=== PATIENT | male | born 1980 | race Caucasian/White ===

== ENCOUNTER 2020-10-01 11:54 | Emergency (ER) | payer OTHER ==
[~2020-10-01] VITALS: Ht 188 cm; Wt 108.9 kg
[2020-10-01 12:44] LABS: BASOPHILS ABSOLUTE AUTO 0.04 K/mm3 (0.00-0.23); BASOPHILS PERCENT AUTO 1 % (0-2); EOSINOPHILS ABSOLUTE AUTO 0.17 K/mm3 (0.00-0.68); EOSINOPHILS PERCENT AUTO 3 % (0-6); Hematocrit 38.2 % (37.0-53.0); IMMATURE GRAN ABSOLUTE AUTO 0.01 K/mm3 (0.00-0.10); IMMATURE GRAN PERCENT AUTO 0 % (0-1); LYMPHOCYTES PERCENT AUTO 8 % (21-46); MONOCYTES ABSOLUTE AUTO 0.74 K/mm3 (0.16-1.47); MONOCYTES PERCENT AUTO 12 % (4-13); Mean Corpuscular Volume 82 fL (80-100); Mean Platelet Volume 9.8 fL (9.1-12.4); NEUTROPHILS ABSOLUTE AUTO 4.88 K/mm3 (1.96-9.15); NEUTROPHILS PERCENT AUTO 77 % (41-73); Platelet Count 265 K/mm3 (150-400); RDW Coefficient Variation 12.3 % (11.7-14.2); RDW Standard Deviation 37.3 fL (35.1-46.3); Red Blood Cell Count 4.65 M/mm3 (4.30-5.90); White Blood Cell Count 6.34 K/mm3 (4.00-11.30)
[2020-10-01 13:01] LABS: Albumin, Blood 3.2 g/dL (3.4-5.0); Albumin/Globulin Ratio 0.7 (0.8-1.8); Bilirubin, Total 1.2 mg/dL (0.1-1.0); Bun/Creatinine Ratio 11.6 (12.0-20.0); Calcium, Blood 9.4 mg/dL (8.5-10.1); Creatinine, Blood 1.46 mg/dL (0.60-1.20); Globulin, Blood 4.4 g/dL (2.2-4.0); Potassium, Blood 3.7 mmol/L (3.5-5.5); Total Protein, Blood 7.6 g/dL (6.4-8.2)
[2020-10-01 14:40] LABS: SARS-Cov-2 (COVID-19) PCR, MMC NEGATIVE (NEGATIVE)
[2020-10-01] MEDS ORDERED: ACET325 PO (16:47)
[2020-10-01] MEDS ORDERED: LORA2 PO (16:47)
[2020-10-01] MEDS ORDERED: IBUP600 PO (16:53)
[2020-10-01] MEDS ORDERED: AZIT250 PO (16:53)
[2020-10-01] MEDS ORDERED: AMOCLA875 PO (16:53)
== END 2020-10-01 17:15 | disposition home or self-care (01) ==
LOC: ER 11:54
PROVIDERS: Physician Assistant; Student in an Organized Health Care Education/Training Program
DX: J18.9 Pneumonia, unspecified organism (principal); R09.1 Pleurisy; R91.8 Other nonspecific abnormal finding of lung field; N17.9 Acute kidney failure, unspecified; R00.0 Tachycardia, unspecified; Z20.822 Contact with and (suspected) exposure to COVID-19
CPT/HCPCS: 71045; 71260; 80053; 84484; 85025; 93005; 93010; 96365; 96375; 99285-25; A9270; J0696; J1885; Q9967; U0004

== ENCOUNTER 2020-10-14 07:05 | Day surgery (SDC) | payer OTHER ==
[~2020-10-14] VITALS: Ht 188 cm; Wt 109.9 kg
[~2020-10-14 07:05] MED LIST: ACET325 PO; AMOCLA875 PO; AZIT250 PO; IBUP600 PO; LORA2 PO; MULVITA PO; PROBIOTIC1 EA13 PO
--- NOTE | 2020-10-14 10:12 | NUR ---
ONE SURGICAL SITE LEFT SIDE OF NECK AND 1 AREA LEFT NECK WITH DERMABONG CDI
--- NOTE | 2020-10-14 10:48 | NUR ---
PATIENT ABLE TO REPOSITION SELF IN BED.
--- NOTE | 2020-10-14 10:57 | NUR ---
DURABOND AT procedure site clean, dry, intact with no visible drainage, swelling, erythema or bruising noted X4 INCISIONS. PROVIDED PO FLUIDS AND PAIN PILL.
--- NOTE | 2020-10-14 11:33 | NUR ---
Ambulatory in Day Surgery. Discharge instructions reviewed with patient. Patient verbalizes understanding. Copy given to patient to take home. DURABOND AT procedure site clean, dry, intact with no visible drainage, swelling, erythema or bruising noted. Patient States Post-Procedure ride home has been arranged. Discharged via wheelchair to private car for ride home. ALL BELONGINGS RETURNED TO PATIENT.
[2020-10-18 13:00] LABS: Performing Lab SYMBIDX; Test Name TISSUE BIOPSY
== END 2020-10-14 11:26 | disposition home or self-care (01) ==
LOC: ORSCMMR 07:05 → ORD 10-18 10:00
PROVIDERS: Pathology Clinical Pathology/Laboratory Medicine; Surgery
PROC: 07B70ZX Excision of Thorax Lymphatic, Open Approach, Diagnostic (ICD-10-PCS; principal; 2020-10-14 08:30)
PROC: 0JH60WZ Insertion of Totally Implantable Vascular Access Device into Chest Subcutaneous Tissue and Fascia, Open Approach (ICD-10-PCS; principal; 2020-10-14 08:30)
DX: C83.32 Diffuse large B-cell lymphoma, intrathoracic lymph nodes (principal); E04.1 Nontoxic single thyroid nodule; Z87.891 Personal history of nicotine dependence
CPT/HCPCS: 77001; 87102; 87106; 88305; 88341; 88342; 88360; 88365; 88374; A9270; C1788; J0690; J1100; J1642; J2250; J2370; J2405; J2704; J3010; J7120

== ENCOUNTER 2021-04-08 11:41 | Emergency (ER) | payer OTHER ==
[~2021-04-08] VITALS: Ht 185.4 cm; Wt 108.9 kg
[2021-04-08 15:52] LABS: BASOPHILS ABSOLUTE AUTO 0.05 K/mm3 (0.00-0.23); BASOPHILS PERCENT AUTO 1 % (0-2); EOSINOPHILS ABSOLUTE AUTO 0.49 K/mm3 (0.00-0.68); EOSINOPHILS PERCENT AUTO 12 % (0-6); Hematocrit 38.1 % (37.0-53.0); Hemoglobin 13.2 g/dL (13.5-17.5); IMMATURE GRAN PERCENT AUTO 0 % (0-1); LYMPHOCYTES PERCENT AUTO 8 % (21-46); MONOCYTES ABSOLUTE AUTO 0.55 K/mm3 (0.16-1.47); MONOCYTES PERCENT AUTO 14 % (4-13); Mean Corpuscular HGB Conc 34.6 g/dL (31.5-36.5); Mean Corpuscular Volume 89 fL (80-100); Mean Platelet Volume 9.9 fL (9.1-12.4); NEUTROPHILS ABSOLUTE AUTO 2.62 K/mm3 (1.96-9.15); NEUTROPHILS PERCENT AUTO 65 % (41-73); Platelet Count 130 K/mm3 (150-400); RDW Coefficient Variation 12.2 % (11.7-14.2); RDW Standard Deviation 39.8 fL (35.1-46.3); Red Blood Cell Count 4.26 M/mm3 (4.30-5.90); White Blood Cell Count 4.01 K/mm3 (4.00-11.30)
[2021-04-08 16:26] LABS: Bun/Creatinine Ratio 13.5 (12.0-20.0); Calcium, Blood 8.7 mg/dL (8.5-10.1); Creatinine, Blood 1.33 mg/dL (0.60-1.20); Potassium, Blood 3.9 mmol/L (3.5-5.5)
== END 2021-04-08 17:31 | disposition home or self-care (01) ==
LOC: ER 11:41
PROVIDERS: Student in an Organized Health Care Education/Training Program
DX: U07.1 COVID-19 (principal)
CPT/HCPCS: 36415; 71045; 80048; 85025; 99285-25; J7030; M0247